=== PATIENT | female | born 1990 | race Caucasian/White ===

== ENCOUNTER 2016-12-05 21:29 | Emergency (ER) | payer OTHER ==
[2016-12-05] MEDS ORDERED: SODIUM CHLORIDE 0.9% 1,000 ML ONE (23:32)
== END 2016-12-06 01:14 | disposition home or self-care (01) ==
LOC: ER 21:29
CPT/HCPCS: 36415; 80053; 80307; 81003; 81025; 84439; 84443; 85025; 87804; 87880; 96360